=== PATIENT | female | born 1945 | race Caucasian/White ===

== ENCOUNTER 2017-03-10 19:18 | Inpatient (IN) | payer OTHER ==
[~2017-03-10] VITALS: Ht 154.9 cm; Wt 90.0 kg
[2017-03-10 20:00] LABS: BASOPHILS # (AUTO) 0.02 K/uL (0.00-0.20); BASOPHILS % (AUTO) 0.3 % (0.0-2.0); EOSINOPHILS % (AUTO) 5.02 % (1.0-6.0); HEMATOCRIT 39.2 % (36-46); HEMOGLOBIN 12.6 g/dL (12.0-16.0); LYMPHOCYTES # (AUTO) 2.1 K/uL (1.0-4.8); LYMPHOCYTES % (AUTO) 25.7 % (22.0-44.0); MEAN CORPUSCULAR HEMOGLOBIN 27.9 pg (26.0-34.0); MEAN CORPUSCULAR HGB CONC 32.1 G/dL (31.0-37.0); MEAN CORPUSCULAR VOLUME 87 fL (80-100); MONOCYTES # (AUTO) 0.9 K/uL (0.1-1.0); MONOCYTES % (AUTO) 11.8 % (2.0-9.0); NEUTROPHILS # (AUTO) 4.6 K/uL (1.8-7.7); NEUTROPHILS % (AUTO) 57.2 % (40.0-70.0); PLATELET COUNT (AUTO) 368 K/uL (150-450); RED BLOOD CELL COUNT(AUTO) 4.51 MIL/uL (4.00-5.20); RED CELL DISTRIBUTION WIDTH 13.9 % (11.5-14.5)
[2017-03-10 20:10] LABS: ANION GAP 9 mmol/L (8-16); CALCIUM, TOTAL 8.8 mg/dL (8.8-10.5); CARBON DIOXIDE 27 mmol/L (22-29); CHLORIDE 97 mmol/L (98-107); CREATININE 1.07 mg/dL (0.60-1.30); GLOMERULAR FILTR. RATE CALC 50 mL/min (>60); INR 1.1 (0.9-1.1); POTASSIUM 3.7 mmol/L (3.5-5.1); PROTHROMBIN TIME 11.4 SEC (9.4-11.6); SODIUM SERUM 133 mmol/L (136-145); UREA NITROGEN, BLOOD 22 mg/dL (7-18)
[2017-03-10 20:16] LABS: ALANINE AMINOTRANSFERASE 14 U/L (12-78); ALBUMIN 3.3 g/dL (3.4-5.0); ASPARTATE AMINOTRANSFERASE 15 U/L (15-37); BILIRUBIN,TOTAL 0.3 mg/dL (0.1-1.0); CREATINE KINASE, TOTAL 66 U/L (26-192); TOTAL PROTEIN, SERUM 6.8 g/dL (6.4-8.2)
[2017-03-10 20:18] LABS: TROPONIN I < 0.02 ng/mL (0.00-0.05)
[2017-03-10 20:28] LABS: AMMONIA < 10 umol/L (11-32)
[2017-03-10] MEDS ORDERED: ASPIRIN 325 MG EC TABLET PO ONE (21:00)
[2017-03-10 21:01] LABS: ERYTHROCYTE SEDIMENTATION RATE 51 MM/HR (0-20)
[2017-03-10 21:17] LABS: ADD UA MICROSCOPIC NO; APPEARANCE,URINE CLEAR (CLEAR); GLUCOSE, URINE (UA) NEGATIVE (NEGATIVE); KETONES,URINE NEGATIVE (NEGATIVE); LEUKOCYTE ESTERASE ,URINE NEGATIVE (NEGATIVE); OCCULT BLOOD,URINE NEGATIVE (NEGATIVE); PROTEIN,URINE NEGATIVE (NEGATIVE)
[2017-03-10 22:01] VITALS: BP 150/91
[2017-03-10 23:50] VITALS: BP 152/87
[2017-03-11] MEDS ORDERED: MAGNESIUM HYDROXIDE SUSPENSION 30 ML UDCUP PO PRN (03:45)
[2017-03-11] MEDS ORDERED: 0.9% SODIUM CHLORIDE 10 ML SYRINGE IVP PRN (03:45)
[2017-03-11] MEDS ORDERED: ONDANSETRON HCL 4 MG/2 ML VIAL IVP PRN (03:45)
[2017-03-11] MEDS ORDERED: ACETAMINOPHEN 325 MG TABLET PO PRN (03:45)
[2017-03-11] MEDS ORDERED: OxyCODONE HCL/ACETAMINOPHEN 5-325 MG TABLET PO PRN ×2 (03:45)
[2017-03-11 05:16] VITALS: BP 128/75
[2017-03-11] MEDS ORDERED: IOVERSOL 350 MG/ML 100 ML VIAL ONE (07:14)
[2017-03-11] MEDS ORDERED: BARIUM SULFATE 0.1% SUSPENSION 450 ML BOTTLE ONE (07:15)
[2017-03-11 07:23] VITALS: BP 145/97
[2017-03-11] MEDS: DOCUSATE SODIUM 100 MG CAPSULE PO SCH ×3 (09:00→20:30)
[2017-03-11] MEDS: PANTOPRAZOLE SODIUM 40 MG/VIAL IVP SCH (09:36)
[2017-03-11 11:22] VITALS: BP 146/69
[2017-03-11] MEDS ORDERED: GADOBUTROL 1 MMOL/ML 10 ML VIAL IVP ONE (12:32)
[2017-03-11 15:32] VITALS: BP 156/75
[2017-03-11 19:19] VITALS: BP 145/84
[2017-03-11] MEDS ORDERED: LORazepam 2 MG/ML VIAL IVP ONE (19:30)
[2017-03-11] MEDS ORDERED: LevETIRAcetam 500 MG in DEXTROSE 5%-WATER 100 ML IV ONE (20:00)
[2017-03-11] MEDS: DEXAMETHASONE 2 MG TABLET PO SCH (20:30)
[2017-03-11 23:55] VITALS: BP 128/67
[2017-03-12 04:14] VITALS: BP 122/66
[2017-03-12 07:36] LABS: BASOPHILS % (AUTO) 0.3 % (0.0-2.0); EOSINOPHILS % (AUTO) 1.5 % (1.0-6.0); HEMATOCRIT 36.4 % (36-46); HEMOGLOBIN 12.3 g/dL (12.0-16.0); LYMPHOCYTES # (AUTO) 1.4 K/uL (1.0-4.8); MEAN CORPUSCULAR HEMOGLOBIN 28.5 pg (26.0-34.0); MEAN CORPUSCULAR HGB CONC 33.7 G/dL (31.0-37.0); MEAN CORPUSCULAR VOLUME 85 fL (80-100); MONOCYTES # (AUTO) 0.7 K/uL (0.1-1.0); NEUTROPHILS # (AUTO) 4.7 K/uL (1.8-7.7); NEUTROPHILS % (AUTO) 68.2 % (40.0-70.0); PLATELET COUNT (AUTO) 358 K/uL (150-450); RED CELL DISTRIBUTION WIDTH 13.6 % (11.5-14.5); WHITE BLOOD COUNT (AUTO) 6.9 K/uL (4.5-11.0)
[2017-03-12 07:42] LABS: CALCIUM, TOTAL 9.2 mg/dL (8.8-10.5); CREATININE 1.17 mg/dL (0.60-1.30); POTASSIUM 4.2 mmol/L (3.5-5.1)
[2017-03-12 08:04] VITALS: BP 116/74
[2017-03-12] MEDS: LevETIRAcetam 500 MG TABLET PO SCH ×2 (08:54→20:14)
[2017-03-12] MEDS: PANTOPRAZOLE SODIUM 40 MG/VIAL IVP SCH (08:54)
[2017-03-12] MEDS: DOCUSATE SODIUM 100 MG CAPSULE PO SCH ×2 (08:54→20:14)
[2017-03-12] MEDS: DEXAMETHASONE 2 MG TABLET PO SCH ×3 (08:54→20:14)
[2017-03-12 11:13] VITALS: BP 134/78
[2017-03-12 15:10] VITALS: BP 153/82
[2017-03-12 19:52] VITALS: BP 133/85
[2017-03-12 23:09] VITALS: BP 151/86
[2017-03-13 03:41] VITALS: BP 138/80
[2017-03-13 07:44] VITALS: BP 141/84
[2017-03-13 10:27] LABS: GLUCOSE,POINT OF CARE 121 MG/DL (70-110)
[2017-03-13] MEDS: DEXAMETHASONE 2 MG TABLET PO SCH ×3 (10:33→20:05)
[2017-03-13] MEDS: DOCUSATE SODIUM 100 MG CAPSULE PO SCH ×2 (10:33→20:05)
[2017-03-13] MEDS: PANTOPRAZOLE SODIUM 40 MG/VIAL IVP SCH (10:33)
[2017-03-13] MEDS: LevETIRAcetam 500 MG TABLET PO SCH ×2 (10:33→20:05)
[2017-03-13 11:40] VITALS: BP 149/82
[2017-03-13 14:44] VITALS: BP 150/76
[2017-03-13] MEDS ORDERED: DSS100 PO (17:26)
[2017-03-13] MEDS ORDERED: DEXA0.5E6 PO (17:26)
[2017-03-13] MEDS ORDERED: PANT40TA25 PO (17:27)
[2017-03-13] MEDS ORDERED: LEVE500T53 PO (17:27)
[2017-03-13] MEDS ORDERED: ONDA4 PO (17:32)
[2017-03-13] MEDS ORDERED: MOM30 PO (17:33)
[2017-03-13] MEDS ORDERED: PERCT PO (17:34)
[2017-03-13] MEDS ORDERED: ACET-784 PO (17:35)
[2017-03-13 20:01] VITALS: BP 157/91
[2017-03-14] MEDS ORDERED: PANTOPRAZOLE SODIUM 40 MG DR TABLET PO SCH (09:00)
== END 2017-03-13 20:20 | disposition short-term general hospital (02) | DRG 70 ==
LOC: EMS 19:20 → 5N 21:00
PROVIDERS: ADMIT Hospitalist; ATTEND Hospitalist
DX: G93.9 Disorder of brain, unspecified (principal); G93.6 Cerebral edema; R47.01 Aphasia; G40.209 Localization-related (focal) (partial) symptomatic epilepsy and epileptic syndromes with complex partial seizures, not intractable, without status epilepticus; D49.6 Neoplasm of unspecified behavior of brain; E66.9 Obesity, unspecified; E78.00 Pure hypercholesterolemia, unspecified; I10 Essential (primary) hypertension; Z68.37 Body mass index [BMI] 37.0-37.9, adult
CPT/HCPCS: 70496; 70553; 71260; 72193; 74160; 82962; 85651; 93005; 95816; 97161; 97530; 99291; A9585; C9113; G0480; J0712; J2060; J2405; J7060; J8540